=== PATIENT | male | born 1990 | race Caucasian/White ===

== ENCOUNTER 2023-10-05 11:29 | Emergency (ER) | payer BC ==
[2023-10-05] MEDS: Diphtheria,Pertussis(Acell),Tetanus Vaccine 0.5 ML Syringe IM ONE (12:18)
== END 2023-10-05 12:20 | disposition home or self-care (01) ==
LOC: JD.ED 11:29
DX: S61.210A Laceration without foreign body of right index finger without damage to nail, initial encounter (principal); Z23 Encounter for immunization; Z91.018 Allergy to other foods; W26.8XXA Contact with other sharp object(s), not elsewhere classified, initial encounter; Y93.89 Activity, other specified
CPT/HCPCS: 90471; 90715; 99282; 99282-25